=== PATIENT | male | born 1995 | race Two or more races ===

== ENCOUNTER 2019-11-05 18:11 | Emergency (ER) | payer OTHER ==
[~2019-11-05] VITALS: Ht 172.7 cm; Wt 90.9 kg
[2019-11-05] MEDS ORDERED: IPRATROPIUM BROMIDE 0.5 MG/2.5 ML NEB SOLUTION NEB ONE ×2 (18:15→19:30)
[2019-11-05] MEDS ORDERED: ALBUTEROL SULFATE 2.5 MG/0.5 ML NEB SOLUTION NEB ONE (18:15)
[2019-11-05] MEDS ORDERED: ALBUTEROL SULFATE HFA 90 MCG/PUFF 8 GM INHALER IH ONE (19:30)
[2019-11-05] MEDS ORDERED: ALBUTEROL SULFATE 5 MG/ML 20 ML NEB SOLN [BULK] NEB ONE (19:30)
[2019-11-05] MEDS ORDERED: PredniSONE 20 MG TABLET PO ONE (19:30)
[2019-11-05] MEDS ORDERED: 0.9% SODIUM CHLORIDE 5 ML NEB SOLUTION NEB ONE (19:56)
[2019-11-05 21:54] VITALS: BP 128/99
== END 2019-11-05 22:04 | disposition home or self-care (01) ==
LOC: EMS 18:11
DX: J45.909 Unspecified asthma, uncomplicated (principal); F17.210 Nicotine dependence, cigarettes, uncomplicated
CPT/HCPCS: 71046; 94640; 94644; 99285; 99406; J7512; 94060; J3535